=== PATIENT | male | born 1960 | race Caucasian/White ===

== ENCOUNTER → 2017-01-09 | Outpatient (CLI) | payer OTHER, MEDICARE ==
[~2017-01-09] MED LIST: ASPIR-LOW81 MG PO; CALCITRIOL0.25 MCG PO; COMBIVENT RESPIM4 GM IH; CORDARONE DPS200 MG PO; COUMADIN4 MG PO; DELTASONE DPS1 MG PO; FOSRENOL500 MG PO; LASIX DPS80 MG PO; LIPITOR DPS20 MG PO; LOPRESSOR DPS50 MG PO; MAALOX DPS30 ML PO; MULTI VITAMIN1 EACH PO; NEXIUM 24HR20 MG PO; OMEGA-3 DPS1000 MG PO; OXY IR DPS5 MG PO; PHOS-LO667 MG PO; PROSTAPHLIN DPS2 GM IV; SENSIPAR60 MG PO; SOD BICARB TAB650 MG PO; SURFAK DPS240 MG PO; TYLENOL DPS325 MG PO; [UNRECOGNIZED DRUG - OTHER] PO
== END | disposition home or self-care (01) ==
LOC: RESC 11-19 13:00 → PTH.S 11-19 14:00 → RESC 11-20 09:00 → PTH.S 12-27 14:00 → RESC 08:45
DX: Z01.818 Encounter for other preprocedural examination (principal); R94.2 Abnormal results of pulmonary function studies; Z79.899 Other long term (current) drug therapy

== ENCOUNTER → 2017-04-08 | Outpatient (CLI) | payer MEDICARE, OTHER | END | disposition home or self-care (01) | LOC: RAD.S 03-28 09:30 | DX: R91.1 Solitary pulmonary nodule (principal); R59.0 Localized enlarged lymph nodes ==